=== PATIENT | female | born 1960 | race Caucasian/White ===

== ENCOUNTER 2017-11-26 09:00 | Emergency (ER) | END 2017-11-26 11:36 | disposition home or self-care (01) ==

== ENCOUNTER 2018-11-17 06:00 | Inpatient (IN) | payer OTHER ==
[~2018-11-17] VITALS: Ht 149.9 cm; Wt 81.0 kg
[~2018-11-17 06:00] MED LIST: ALBU18HF INHALATION; DOCU-144 PO; LISI-471 PO
[2018-11-17] MEDS ORDERED: ASPIRIN 81 MG TAB PO STA (06:15)
[2018-11-17] MEDS ORDERED: NITROGLYCERIN 2% 1 GM OINT PKT TD STA (06:15)
[2018-11-17] MEDS ORDERED: NITROGLYCERIN (SL) 0.4 MG TAB SL PRN (06:30)
[2018-11-17] MEDS ORDERED: IBUP-1542 PO (07:59)
--- NOTE | 2018-11-17 08:58 | ERD ---
ER Documentation Chief Complaint Chief Complaint CP since 2299 HPI Patient is a 58-year-old female with hypertension who presents with chest pain and left-sided arm pain. The symptoms started at 11 PM. Her pain has been constant. She tried ibuprofen. She feels it as a pressure-like pain. Upon review of old medical records this is the patient's third visit since 2016. She does have a primary doctor. ROS All systems reviewed and are negative except as per history of present illness. Medications Home Meds Reported Medications Ibuprofen* (Motrin*) 600 Mg Tab, 600 MG PO Q6H PRN for PAIN, TAB 11/17/18 Lisinopril* (Lisinopril*) 20 Mg Tablet, 20 MG PO DAILY, TAB 11/10/15 Discontinued Reported Medications Albuterol Sulfate* (Ventolin HFA*) 18 Gm Hfa.aer.ad, 2 PUFF INHALATION Q4H, INHALER 11/10/15 Discontinued Scripts Docusate Sodium* (Colace*) 100 Mg Capsule, 100 MG PO TID PRN for CONSTIPATION, #30 CAP Prov:KAYA DILL MD 11/26/17 Allergies Allergies: Coded Allergies: No Known Allergy (Unverified , 11/17/18) PMhx/Soc History of Surgery: Yes (hernia repair, , hysterectomy, apendectomy, gall bladder) Anesthesia Reaction: No Hx Neurological Disorder: No Hx Respiratory Disorders: Yes Hx Cardiac Disorders: Yes (HTN) Hx Psychiatric Problems: No Hx Miscellaneous Medical Probl: Yes (chronic back pain and sciatica of the left leg. Arthritis.) Hx Alcohol Use: No Hx Substance Use: No Hx Tobacco Use: No Smoking Status: Never smoker FmHx Family History: No coronary disease Physical Exam Vitals Vital Signs Date Temp Pulse Resp B/P (MAP) Pulse Ox O2 O2 Flow FiO2 Time Delivery Rate 11/17/18 68 14 167/77 99 Room Air 08:00 (107) 11/17/18 98.3 66 20 219/102 99 06:06 (141) Physical Exam Const: Mild distress Head: Atraumatic Eyes: Normal Conjunctiva ENT: Normal External Ears, Nose and Mouth. Neck: Full range of motion. No meningismus. Resp: Clear to auscultation bilaterally Cardio: Regular rate and rhythm, no murmurs Abd: Soft, non tender, non distended. Normal bowel sounds Skin: No petechiae or rashes Back: No midline or flank tenderness Ext: No cyanosis, or edema Neur: Awake and alert Psych: Normal Mood and Affect Result Diagram: 11/17/1862511/17/18625 Results 24 hrs Laboratory Tests Test 11/17/18 06:26 White Blood Count 6.3 10^3/ul Red Blood Count 5.63 10^6/ul Hemoglobin 15.2 g/dl Hematocrit 47.4 % Mean Corpuscular Volume 84.2 fl Mean Corpuscular Hemoglobin 27.0 pg Mean Corpuscular Hemoglobin Concent 32.1 g/dl Red Cell Distribution Width 13.8 % Platelet Count 269 10^3/UL Mean Platelet Volume 9.5 fl Immature Granulocytes % 0.200 % Neutrophils % 53.4 % Lymphocytes % 36.0 % Monocytes % 7.1 % Eosinophils % 2.5 % Basophils % 0.8 % Nucleated Red Blood Cells % 0.0 /100WBC Immature Granulocytes # 0.010 10^3/ul Neutrophils # 3.4 10^3/ul Lymphocytes # 2.3 10^3/ul Monocytes # 0.5 10^3/ul Eosinophils # 0.2 10^3/ul Basophils # 0.1 10^3/ul Nucleated Red Blood Cells # 0.0 10^3/ul Sodium Level 143 mmol/L Potassium Level 4.1 mmol/L Chloride Level 107 mmol/L Carbon Dioxide Level 29 mmol/L Anion Gap 7 Blood Urea Nitrogen 16 mg/dl Creatinine 0.57 mg/dl Est Glomerular Filtrat Rate mL/min > 60 mL/min Glucose Level 116 mg/dl Calcium Level 9.5 mg/dl Troponin I < 0.012 ng/ml Current Medications Medications Dose Sig/Melvin Start Time Status Last (Trade) Ordered Route PRN Stop Time Admin Dose Reason Admin Aspirin 162 mg ONCE STAT 11/17/18 DC 11/17/18 (Aspirin) PO 06:15 06:44 11/17/18 06:16 1 inch ONCE STAT 11/17/18 DC 11/17/18 Nitroglycerin TD 06:15 06:44 11/17/18 06:16 (Nitroglyceri n 2% Oint) 1 tab Q5M UP TO 3 11/17/18 Nitroglycerin DOSES PRN 06:30 SL .CHEST (Nitroglyceri PAIN n (Sl Tab) 0.4 Mg) Ondansetron 4 mg ER BRIDGE 11/17/18 HCl (Zofran PRN IV 09:00 Inj) NAUSEA/VOMITI 11/18/18 08:59 NG 650 mg ER BRIDGE 11/17/18 Acetaminophen PRN PO 09:00 (Tylenol .MILD PAIN 11/18/18 08:59 Tab) 1-3 OR TEMP Procedures/MDM EKG read by me: Rate/Rhythm: Regular rate and rhythm at a normal rate Intervals: Normal Impression: No evidence of ischemia or arrhythmia Chest x-ray read by radiology. Patient is a 58-year-old female who presents with chest pain. She has hypertension. She was given aspirin nitroglycerin for potential acute coronary syndrome. At this point I doubt pneumonia, pneumothorax, pulmonary embolism, or aortic dissection. The patient will be admitted to the care of Dr. Vega from the panel team. The patient will be admitted to a telemetry observation bed. Departure Diagnosis: Primary Impression: Chest pain Chest pain type: unspecified Qualified Codes: R07.9 - Chest pain, unspecified Condition: KAIT Medina MD Nov 17, 2018 08:58
[2018-11-17] MEDS ORDERED: ONDANSETRON 4 MG INJ IV PRN ×2 (09:00→14:30)
[2018-11-17] MEDS: ACETAMINOPHEN 325 MG TAB PO PRN ×2 (11:42→21:06)
[2018-11-17 11:59] VITALS: Ht 149.9 cm; Wt 81.0 kg
[2018-11-17 12:03] VITALS: BP 177/81; PULSE 56; RESP 17
[2018-11-17 12:05] VITALS: PULSE 57
[2018-11-17] MEDS ORDERED: LORAZEPAM 0.5 MG TAB PO PRN (14:30)
[2018-11-17] MEDS ORDERED: ACETAMINOPHEN 325 MG TAB PO PRN (14:30)
[2018-11-17] MEDS ORDERED: morphine 2 MG INJ IV PRN (14:30)
[2018-11-17] MEDS ORDERED: ZOLPIDEM 5 MG TAB PO PRN (14:30)
[2018-11-17] MEDS ORDERED: DOCUSATE SODIUM 100 MG CAP PO SCH (14:30)
[2018-11-17] MEDS: PANTOPRAZOLE (EC) 40 MG TAB PO SCH (15:09)
[2018-11-17 15:19] VITALS: BP 146/71; PULSE 52; RESP 16
[2018-11-17 16:00] VITALS: PULSE 62
--- NOTE | 2018-11-17 16:57 | CONS ---
Assessment/Plan Assessment/Plan Hospital Course (Demo Recall) 58 yo with chest and arm pain that are chronic and worsening. EKG unremarkable and troponins negative. Pain is most likely musculoskeletal, could be occupational. Impression: Chest pain, non cardiac, likely due to musculoskeletal issues Hypertension, with fair control Recommendations: No further cardiac workup needed Shoulder xrays ordered Will defer to primary/hospitalist for further workup of musculoskeletal shoulder pain Continue lisinopril Discussed importance of exercise and healthy diet for heart health Consultation Date/Type/Reason Admit Date/Time Nov 17, 2018 at 08:56 Date of Consultation: Nov 17, 2018 Type of Consult Cardiology Reason for Consultation chest pain Requesting Provider: JULY MARY Date/Time of Note DATE: 11/17/18 TIME: 16:52 Hx of Present Illness 58 yo with hypertension, 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 The pain is constant, does ease up at times, is worse with physical exertion and with lifting the left arm. She saw her pcp regarding this and she was told that she needs xrays of her shoulder. She also has low back pain. She has been taking ibuprofen to ease up the pain without much effect. No injury that she can think of that precipitated this. Constitutional: no complaints Eyes: no complaints ENT: no complaints Respiratory: no complaints Cardiovascular: chest pain Gastrointestinal: no complaints Genitourinary: no complaints Musculoskeletal: back pain Skin: no complaints Neurologic: no complaints Endocrine: no complaints Lymphatic: no complaints Psychological: no complaints Immunologic: no complaints Past Medical History Medical History: hypertension Home Meds Reported Medications Ibuprofen* (Motrin*) 600 Mg Tab, 600 MG PO Q6H PRN for PAIN, TAB 11/17/18 Lisinopril* (Lisinopril*) 20 Mg Tablet, 20 MG PO DAILY, TAB 11/10/15 Discontinued Reported Medications Albuterol Sulfate* (Ventolin HFA*) 18 Gm Hfa.aer.ad, 2 PUFF INHALATION Q4H, INHALER 11/10/15 Discontinued Scripts Docusate Sodium* (Colace*) 100 Mg Capsule, 100 MG PO TID PRN for CONSTIPATION, #30 CAP Prov:KAYA DILL MD 11/26/17 Medications Current Medications Nitroglycerin (Nitroglycerin (Sl Tab) 0.4 Mg) 1 tab Q5M UP TO 3 DOSES PRN SL .CHEST PAIN; Start 11/17/18 at 06:30 Acetaminophen (Tylenol Tab) 650 mg ER BRIDGE PRN PO .MILD PAIN 1-3 OR TEMP Last administered on 11/17/18at 11:42; Admin Dose 650 MG; Start 11/17/18 at 09:00; St op 11/18/18 at 08:59 Lorazepam (Ativan) 0.5 mg Q8H PRN PO .ANXIETY; Start 11/17/18 at 14:30 Ondansetron HCl (Zofran Inj) 4 mg Q6H PRN IV NAUSEA/VOMITING; Start 11/17/18 at 14:30 Aspirin (Aspirin) 81 mg DAILY PO ; Start 11/18/18 at 09:00 Acetaminophen (Tylenol Tab) 650 mg Q6H PRN PO .PAIN 1-3 OR TEMP; Start 11/17/18 at 14:30 Morphine Sulfate (morphine) 2 mg Q4H PRN IV .PAIN 7-10; Start 11/17/18 at 14:30 Zolpidem Tartrate (Ambien) 5 mg QHS PRN PO .INSOMNIA; Start 11/17/18 at 14:30 Docusate Sodium (Colace) 100 mg Q12H PO Last administered on 11/17/18at 15:09; Admin Dose 100 MG; Start 11/17/18 at 14:30 Pantoprazole (Protonix Tab) 40 mg DAILY@06 PO Last administered on 11/17/18at 15:09; Admin Dose 40 MG; Start 11/17/18 at 14:30 Lisinopril (Zestril) 20 mg DAILY PO ; Start 11/18/18 at 09:00 Allergies: Coded Allergies: No Known Allergy (Unverified , 11/17/18) Family History Significant Family History: no pertinent family hx (no premature cad) Social History Alcohol Use: none Smoking Status: Never smoker Drug Use: none Exam/Review of Systems Vital Signs Vitals Vital Signs Date Temp Pulse Resp B/P (MAP) Pulse Ox O2 O2 Flow FiO2 Time Delivery Rate 11/17/18 97.7 52 16 146/71 96 15:19 (96) 11/17/18 Room Air 11:38 Exam Constitutional: alert, oriented, well developed, other (obese) Psych: nl mood/affect Head: normocephalic, atraumatic Eyes: nl conjunctiva, EOMI, nl lids, nl sclera ENMT: nl external ears & nose, nl lips & teeth, nl nasal mucosa & septum Neck: supple, non-tender Respiratory: clear to auscultation, normal air movement Cardiovascular: regular rate and rhythm, nl pulses, other (chest pain reproduced by palpating the upper chest wall); No murmurs/extra sounds Gastrointestinal: soft, nl liver, spleen, non-tender, other (obese) Musculoskeletal: nl extremities to inspection Extremities: normal pulses Neurological: nl mental status, nl speech Skin: nl turgor; No rash or lesions Labs Result Diagram: 11/17/1862511/17/18625 Results 24hrs Laboratory Tests Test 11/17/18 06:26 11/17/18 13:55 White Blood Count 6.3 # Red Blood Count 5.63 H Hemoglobin 15.2 Hematocrit 47.4 H Mean Corpuscular Volume 84.2 Mean Corpuscular Hemoglobin 27.0 L Mean Corpuscular Hemoglobin Concent 32.1 Red Cell Distribution Width 13.8 Platelet Count 269 Mean Platelet Volume 9.5 Immature Granulocytes % 0.200 Neutrophils % 53.4 Lymphocytes % 36.0 Monocytes % 7.1 Eosinophils % 2.5 Basophils % 0.8 Nucleated Red Blood Cells % 0.0 Immature Granulocytes # 0.010 Neutrophils # 3.4 Lymphocytes # 2.3 Monocytes # 0.5 Eosinophils # 0.2 Basophils # 0.1 Nucleated Red Blood Cells # 0.0 Sodium Level 143 Potassium Level 4.1 Chloride Level 107 Carbon Dioxide Level 29 Anion Gap 7 Blood Urea Nitrogen 16 Creatinine 0.57 Est Glomerular Filtrat Rate mL/min > 60 Glucose Level 116 Calcium Level 9.5 Troponin I < 0.012 < 0.012 Creatine Kinase 51 Creatine Kinase Index 1.3 Creatinine Kinase MB (Mass) 0.66 Imaging Imaging EKG shows nsr at 58 bpm, and is a normal ekg Telemetry earlier in the day showed heart rates as low as the 40's. Medications Medications Current Medications Nitroglycerin (Nitroglycerin (Sl Tab) 0.4 Mg) 1 tab Q5M UP TO 3 DOSES PRN SL .CHEST PAIN; Start 11/17/18 at 06:30 Acetaminophen (Tylenol Tab) 650 mg ER BRIDGE PRN PO .MILD PAIN 1-3 OR TEMP Last administered on 11/17/18at 11:42; Admin Dose 650 MG; Start 11/17/18 at 09:00; Stop 11/18/18 at 08:59 Lorazepam (Ativan) 0.5 mg Q8H PRN PO .ANXIETY; Start 11/17/18 at 14:30 Ondansetron HCl (Zofran Inj) 4 mg Q6H PRN IV NAUSEA/VOMITING; Start 11/17/18 at 14:30 Aspirin (Aspirin) 81 mg DAILY PO ; Start 11/18/18 at 09:00 Acetaminophen (Tylenol Tab) 650 mg Q6H PRN PO .PAIN 1-3 OR TEMP; Start 11/17/18 at 14:30 Morphine Sulfate (morphine) 2 mg Q4H PRN IV .PAIN 7-10; Start 11/17/18 at 14:30 Zolpidem Tartrate (Ambien) 5 mg QHS PRN PO .INSOMNIA; Start 11/17/18 at 14:30 Docusate Sodium (Colace) 100 mg Q12H PO Last administered on 11/17/18at 15:09; Admin Dose 100 MG; Start 11/17/18 at 14:30 Pantoprazole (Protonix Tab) 40 mg DAILY@06 PO Last administered on 11/17/18at 15:09; Admin Dose 40 MG; Start 11/17/18 at 14:30 Lisinopril (Zestril) 20 mg DAILY PO ; Start 11/18/18 at 09:00 FIGUEROA MESSER Nov 17, 2018 16:57
--- NOTE | 2018-11-17 17:41 | HP ---
DATE OF ADMISSION: 11/17/2018 PRESENTING COMPLAINT: Left-sided chest pain. HISTORY OF PRESENTING COMPLAINT: A 58-year-old female with past medical history only of high blood p ressure, who presented to the emergency room with intermittent chest pain since yesterday. Patient s tates for about a year she has had on and off chest pain, but in the last day it has been worsened an d it has affected her left shoulder. It radiates down her left arm, and also has some discomfort in her jaw area. Of note is that these areas are sore as well, but she has not sustained any trauma, sh e has not been doing any heavy lifting and pain kind of just comes on and subsides on its own. The p ain is also associated with some activity. There is no shortness of breath. There is no diaphoresis . No cough, no fever, no abdominal pain, dysuria or hematuria. She has pain on and off for about a year, but prior to that she has not had similar pain before. She had no family history of dementia, coronary artery disease or early stroke. PAST MEDICAL HISTORY: Hypertension, intermittent asthma. PAST SURGICAL HISTORY: section, urinary repair, tonsillectomy, appendectomy and gallbladder surgery. ALLERGIES: No known drug allergies. SOCIAL HISTORY: Denies tobacco, alcohol or illicit drug use. FAMILY HISTORY: Positive for diabetes only. REVIEW OF SYSTEMS: A 12-point review of system with no pertinent findings other than HPI. HOME MEDICATIONS: Reviewed and reconciled. PHYSICAL EXAMINATION VITAL SIGNS: Temperature 97.7. Patient has been bradycardic to the 50s, actually had episodes of go ing all the way to the 40s, respiratory rate 16, blood pressure 146/71, saturation 96% on room air. GENERAL: The patient is mildly anxious, but alert, oriented, currently in no distress. HEENT: Head is normocephalic with evidence of trauma. Pupils are equal, round, and reactive. Mucou s membranes are moist. Posterior pharynx without erythema and exudate. NECK: Supple without adenopathy or JVD. CHEST: Clear to auscultation. CARDIOVASCULAR: Heart sounds S1 and S2, without added sounds or murmurs. ABDOMEN: Soft, nontender, nondistended with normoactive bowel sounds. On chest exam, she does seem sore to palpation left anterior chest wall extending to the left shoulde r, but also arm has been sore, says it is more soreness rather than tenderness to palpation. SKIN: Otherwise is devoid of rash or jaundice. PSYCHIATRIC: She was anxious. LABORATORY VALUES: I reviewed her CBC, a basic metabolic profile and they are essentially so far are negative. We have 2 negative sets of troponin. EKG shows sinus bradycardia at 50. Chest x-ray heavenly wed no active cardiopulmonary abnormalities. ASSESSMENT: Details reveal past medical history of high blood pressure who presents with intermitten t chest pain for about a year, has worsened in the last day, warranting emergency room visit, admitte d and managed as follows: 1. Atypical chest pain radiating to left shoulder and jaw. The patient is admitted for ACS rule out . 2. Hypertension: Currently showing good control on lisinopril alone at home. 3. Mild anxiety. PLAN: Admit her to tele floor, complete ACS rule out, get a 2D echo, provide symptomatic treatment w ith pain control, I will also have antiemetics and PPI in case this is gastric in origin. Will get c ardiology consultation to see if patient would benefit from a stress test and provide further interve ntions as her clinical course progresses. The plan of care has been discussed with her in detail, qu estions have been answered. Dictated By: JULY MARY MD, BA/NARCISA Conf#: [id number] DID#: [id number]
[2018-11-17 20:00] VITALS: BP 150/73; PULSE 55; RESP 16
[2018-11-17 20:16] VITALS: PULSE 70
[2018-11-18] VITALS (13 sets, daily range): BP systolic 114–181; BP diastolic 53–87; PULSE 53–71; RESP 18–22
[2018-11-18] MEDS: PANTOPRAZOLE (EC) 40 MG TAB PO SCH (05:53)
[2018-11-18] MEDS: ACETAMINOPHEN 325 MG TAB PO PRN (07:29)
[2018-11-18] MEDS: LISINOPRIL 20 MG TAB PO SCH (08:28)
[2018-11-18] MEDS: DOCUSATE SODIUM 100 MG CAP PO SCH ×2 (08:28→20:25)
[2018-11-18] MEDS: ASPIRIN 81 MG TAB PO SCH (08:28)
[2018-11-18] MEDS: DICLOFENAC SODIUM 1% GEL 100 GM TUBE TP SCH ×3 (15:12→20:25)
--- NOTE | 2018-11-18 15:50 | RADRPT ---
Echocardiogram Report Patient Name: Elver LOPEZ ID: [id number] : 1960 (58y 10m)Study Date: 11/18/2018 7:06:40 AM Gender: FAccession #: [id number] Tech: Neto Perez [facility] Location: 6 Ref.Physician: JULY MARY Height(Cm): BSA: Weight(Kg): Quality: AdequateAccount #: Procedures: Echocardiographic Report: Transthoracic echocardiogram with complete 2D, M-Mode, and doppler examination. Indications: Chest Pain. Measurements: 2D/M Mode Doppler Measurement Value Normal Range Measurement Value Normal Range LVIDd 2D 4.3 [ 3.8 - 5.2 ] cm AV Peak Darion 1.3 [ 100.0 - 170.0 ] cm/sec LVIDs 2D 2.9 [ 2.2 - 3.5 ] cm AV Peak PG 7.0 [ 2.0 - 9.0 ] mmHg LVPWd 2D 1.0 [ 0.6 - 0.9 ] cm LVOT Peak Darion 0.8 [ 70.0 - 110.0 ] cm/sec IVSd 2D 1.1 [ 0.6 - 0.9 ] cm LVOT Peak PG 3.0 [ 2.0 - 6.0 ] mmHg AoR Diam 2D 2.5 [ 2.3 - 3.1 ] cm MV E Peak Darion 0.7 [ 60.0 - 130.0 ] cm/sec EDV 2D 80.8 [ 46.0 - 106.0 ] ml MV A Peak Darion 0.6 [ 100.0 - 120.0 ] cm/sec ESV 2D 31.9 [ 14.0 - 42.0 ] ml MV E/A 1.0 [ 0.8 - 1.5 ] ratio EF 2D 60.5 [ 54.0 - 74.0 ] percent MV Decel Time 208 [ 104 - 258 ] msec LA Dimen 2D 3.2 [ 2.7 - 3.8 ] cm Lat E` Darion 0.1 [ 10.0 - 15.0 ] cm/sec Lateral E/E` 5.2 [ 1.0 - 2.0 ] ratio MV E/A 1.0 [ 0.8 - 1.5 ] ratio Findings: Left Ventricle: Normal left ventricular systolic function. Normal left ventricular cavity size. Normal left ventricular wall thickness. Ejection fraction is visually estimated at 65 %. Tissue Doppler/Mitral Doppler indices are within normal limits. Right Ventricle: Normal right ventricular size. Normal right ventricular systolic function. Left Atrium: The left atrium is normal in size. Right Atrium: The right atrium is normal in size. Mitral Valve: Normal appearance of the mitral valve. No mitral valve regurgitation is seen. Aortic Valve: Normal appearance of the aortic valve. No significant aortic stenosis or insufficiency. Tricuspid Valve: Normal appearance and function of the tricuspid valve with trace physiologic regurgitation. Normal right ventricular systolic pressure. Pulmonic Valve: Normal pulmonic valve appearance. Pericardium: Normal pericardium with no significant pericardial effusion. Aorta: Normal aortic root. IVC: Normal size and normal respiratory collapse consistent with normal right atrial pressure. Conclusions: Normal echocardiogram. Electronically Signed By: Kierra Marroquin 2018-11-18 15:49:39 PDT
--- NOTE | 2018-11-18 17:26 | PN ---
Date/Time of Note Date/Time of Note DATE: 11/18/18 TIME: 17:23 Assessment/Plan VTE Prophylaxis Risk score (from Ns)>0 risk: 2 SCD applied (from Ns): Yes SCD contraindicated: low risk/ambulating Pharmacological prophylaxis: NA/contraindicated Pharm contraindication: low risk/ambulating Lines/Catheters IV Catheter Type (from [facility]): Saline Lock Assessment/Plan Assessment/Plan 1. Atypical left-sided chest pain radiating to left shoulder:, cardiology has deemed noncardiac in origin, recommended musculoskeletal workup. Will get MRI of the shoulder to rule out rotator cuff pathology as shoulder x-rays negative at this time. 2. Hypertension: With well controlled 3. Headaches and dizziness: Patient requesting imaging as this has been concerning for her. Will also order meclizine as needed and get neurology consult 4. Anxiety: Treat as needed Disposition: patient was to be discharged today after a cardiac clearance, but will order imaging as above, and if negative will discharge patient for continued management as outpatient with PCP. We will also downgraded to Weight Wins Result Diagram: 11/18/18 0457 11/18/18 0457 Results 24hrs Laboratory Tests Test 11/17/18 17:36 11/18/18 04:57 Creatine Kinase 46 Creatine Kinase Index 1.2 Creatinine Kinase MB (Mass) 0.56 Troponin I < 0.012 White Blood Count 5.6 Red Blood Count 5.46 H Hemoglobin 14.7 Hematocrit 45.7 Mean Corpuscular Volume 83.7 Mean Corpuscular Hemoglobin 26.9 L Mean Corpuscular Hemoglobin Concent 32.2 Red Cell Distribution Width 14.2 Platelet Count 274 Mean Platelet Volume 9.7 Immature Granulocytes % 0.200 Neutrophils % 51.0 Lymphocytes % 39.1 Monocytes % 7.1 Eosinophils % 2.1 Basophils % 0.5 Nucleated Red Blood Cells % 0.0 Immature Granulocytes # 0.010 Neutrophils # 2.9 Lymphocytes # 2.2 Monocytes # 0.4 Eosinophils # 0.1 Basophils # 0.0 Nucleated Red Blood Cells # 0.0 Sodium Level 140 Potassium Level 4.5 Chloride Level 104 Carbon Dioxide Level 28 Anion Gap 8 Blood Urea Nitrogen 13 Creatinine 0.50 Est Glomerular Filtrat Rate mL/min > 60 Glucose Level 109 Calcium Level 9.2 Magnesium Level 2.1 Total Bilirubin 0.4 Direct Bilirubin 0.00 Indirect Bilirubin 0.4 Aspartate Amino Transf (AST/SGOT) 22 Alanine Aminotransferase (ALT/SGPT) 13 Alkaline Phosphatase 89 Total Protein 6.9 Albumin 3.9 Globulin 3.00 Albumin/Globulin Ratio 1.30 Triglycerides Level 139 Cholesterol Level 184 LDL Cholesterol, Calculated 94 HDL Cholesterol 62 Cholesterol/HDL Ratio 2.9 Thyroid Stimulating Hormone (TSH) 1.790 Subjective 24 Hr Interval Summary Free Text/Dictation Patient still having persistent left-sided chest pain radiating to left shoulder, now also noting that she has been having headaches and dizziness for a while. States that headaches Exam/Review of Systems Exam Vitals Vital Signs Date Temp Pulse Resp B/P (MAP) Pulse Ox O2 O2 Flow FiO2 Time Delivery Rate 11/18/18 54 16:00 11/18/18 98.0 22 157/73 96 Room Air 15:54 (101) Intake and Output 11/17/18 11/17/18 11/18/18 1515:00 23:00 07:00 IntakeIntake Total 780 ml 120 ml BalanceBalance 780 ml 120 ml Exam Constitutional: alert, oriented Head: atraumatic, normocephalic Neck: non-tender, supple Respiratory: clear to auscultation Cardiovascular: regular rate and rhythm Gastrointestinal: S/ NT / ND / +BS Extremities: no edema, good radial pulses, patient remains with soreness and tenderness left shoulder and forearm. Results Results 24hrs Laboratory Tests Test 11/17/18 17:36 11/18/18 04:57 Creatine Kinase 46 Creatine Kinase Index 1.2 Creatinine Kinase MB (Mass) 0.56 Troponin I < 0.012 White Blood Count 5.6 Red Blood Count 5.46 H Hemoglobin 14.7 Hematocrit 45.7 Mean Corpuscular Volume 83.7 Mean Corpuscular Hemoglobin 26.9 L Mean Corpuscular Hemoglobin Concent 32.2 Red Cell Distribution Width 14.2 Platelet Count 274 Mean Platelet Volume 9.7 Immature Granulocytes % 0.200 Neutrophils % 51.0 Lymphocytes % 39.1 Monocytes % 7.1 Eosinophils % 2.1 Basophils % 0.5 Nucleated Red Blood Cells % 0.0 Immature Granulocytes # 0.010 Neutrophils # 2.9 Lymphocytes # 2.2 Monocytes # 0.4 Eosinophils # 0.1 Basophils # 0.0 Nucleated Red Blood Cells # 0.0 Sodium Level 140 Potassium Level 4.5 Chloride Level 104 Carbon Dioxide Level 28 Anion Gap 8 Blood Urea Nitrogen 13 Creatinine 0.50 Est Glomerular Filtrat Rate mL/min > 60 Glucose Level 109 Calcium Level 9.2 Magnesium Level 2.1 Total Bilirubin 0.4 Direct Bilirubin 0.00 Indirect Bilirubin 0.4 Aspartate Amino Transf (AST/SGOT) 22 Alanine Aminotransferase (ALT/SGPT) 13 Alkaline Phosphatase 89 Total Protein 6.9 Albumin 3.9 Globulin 3.00 Albumin/Globulin Ratio 1.30 Triglycerides Level 139 Cholesterol Level 184 LDL Cholesterol, Calculated 94 HDL Cholesterol 62 Cholesterol/HDL Ratio 2.9 Thyroid Stimulating Hormone (TSH) 1.790 Medications Medication Current Medications Nitroglycerin (Nitroglycerin (Sl Tab) 0.4 Mg) 1 tab Q5M UP TO 3 DOSES PRN SL .CHEST PAIN; Start 11/17/18 at 06:30 Lorazepam (Ativan) 0.5 mg Q8H PRN PO .ANXIETY; Start 11/17/18 at 14:30 Ondansetron HCl (Zofran Inj) 4 mg Q6H PRN IV NAUSEA/VOMITING; Start 11/17/18 at 14:30 Aspirin (Aspirin) 81 mg DAILY PO Last administered on 11/18/18at 08:28; Admin Dose 81 MG; Start 11/18/18 at 09:00 Acetaminophen (Tylenol Tab) 650 mg Q6H PRN PO .PAIN 1-3 OR TEMP; Start 11/17/18 at 14:30 Morphine Sulfate (morphine) 2 mg Q4H PRN IV .PAIN 7-10; Start 11/17/18 at 14:30 Zolpidem Tartrate (Ambien) 5 mg QHS PRN PO .INSOMNIA; Start 11/17/18 at 14:30 Pantoprazole (Protonix Tab) 40 mg DAILY@06 PO Last administered on 11/17/18at 15:09; Admin Dose 40 MG; Start 11/17/18 at 14:30 Lisinopril (Zestril) 20 mg DAILY PO Last administered on 11/18/18at 08:28; Admin Dose 20 MG; Start 11/18/18 at 09:00 Docusate Sodium (Colace) 100 mg Q12H PO Last administered on 11/18/18at 08:28; Admin Dose 100 MG; Start 11/18/18 at 09:00 Diclofenac Sodium (Voltaren 1% Gel) 4 gm QID TP Last administered on 11/18/18at 15:12; Admin Dose 4 GM; Start 11/18/18 at 14:30 JULY MARY Nov 18, 2018 17:26
--- NOTE | 2018-11-18 17:28 | CONS ---
Assessment/Plan Assessment/Plan Hospital Course 58 yo F with hx of HTN and other comorbidities who presents for evaluation of chest pain. She was noted to have headaches... for which neurology is consulted. The clinical picture is consistent with migraines. 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 P: Await Head CT for further characterization Add Naproxen 500mg q8h prn for abortive management for now, w/ Topamax 25mg BID for ppx..to be titrated to goal as an outpatient.. Other medical management and supportive care per primary Will follow clinically Consultation Date/Type/Reason Admit Date/Time Nov 17, 2018 at 08:56 Type of Consult Neurology Reason for Consultation headache Requesting Provider: JULY MARY Date/Time of Note DATE: 11/18/18 TIME: 16:58 Hx of Present Illness 58 yo F with hx of HTN and other comorbidities who presented to the ED with complaints of chest pain She additionally endorses headaches today. She states that she has had them consistently for ~30 years. She states that when they start, they start frontally before radiating to the back of her head and down her neck. She endorses a severe, throbbing pain, that is usually associated with nausea, dizziness, and sensitivity to light. Alleviating factors include rest. It is additionally elsewhere noted: HISTORY OF PRESENTING COMPLAINT: A 58-year-old female with past medical history only of high blood pressure, who presented to the emergency room with intermittent chest pain since yesterday. Patient states for about a year she has had on and off chest pain, but in the last day it has been worsened and it has affected her left shoulder. It radiates down her left arm, and also has some discomfort in her jaw area. Of note is that these areas are sore as well, but she has not sustained any trauma, she has not been doing any heavy lifting and pain kind of just comes on and subsides on its own. The pain is also associated with some activity. There is no shortness of breath. There is no diaphoresis. No cough, no fever, no abdominal pain, dysuria or hematuria. She has pain on and off for about a year, but prior to that she has not had similar pain before. She had no family history of dementia, coronary artery disease or early stroke. negative unless noted otherwise in HPI Exam/Review of Systems Exam Vitals Vital Signs Date Temp Pulse Resp B/P (MAP) Pulse Ox O2 O2 Flow FiO2 Time Delivery Rate 11/18/18 98.0 53 22 157/73 96 Room Air 15:54 (101) Intake and Output 11/17/18 11/17/18 11/18/18 1515:00 23:00 07:00 IntakeIntake Total 780 ml 120 ml BalanceBalance 780 ml 120 ml Exam PE: Gen Appearance: No Apparent Distress HEENT: Normocephalic Cardiovascular: Regular rate Lungs: Clear bilaterally Abdomen: Soft Extremities: Dry NE: The patient was alert and oriented. Language was normal. Fund of knowledge was normal. Pupils were equal and reactive to light. There was no afferent pupillary defect. Visual munguia were normal. Funduscopic examination was limited. Extra-ocular movements were full. Ptosis was absent. There was no nystagmus. Facial sensation was normal. Face was symmetric with normal strength. Hearing was intact. Palate movements were normal. Neck strength was normal. There was normal tongue bulk and speed of movement. Tone was normal. Muscle bulk was normal. I did not see fasciculations. Arms and legs were strong. Vibration sensation was normal. Temperature and pinprick sensation was normal. Rapid alternating movements were normal. There was no dysmetria. There was no intention tremor. Gait was deferred due to bedrest. Arm and leg reflexes were 2+ and symmetric. Benítez's sign was absent. Plantar responses were flexor. Results Result Diagram: 11/18/18 0457 11/18/18 0457 Results 24hrs Laboratory Tests Test 11/17/18 17:36 11/18/18 04:57 Creatine Kinase 46 Creatine Kinase Index 1.2 Creatinine Kinase MB (Mass) 0.56 Troponin I < 0.012 White Blood Count 5.6 Red Blood Count 5.46 H Hemoglobin 14.7 Hematocrit 45.7 Mean Corpuscular Volume 83.7 Mean Corpuscular Hemoglobin 26.9 L Mean Corpuscular Hemoglobin Concent 32.2 Red Cell Distribution Width 14.2 Platelet Count 274 Mean Platelet Volume 9.7 Immature Granulocytes % 0.200 Neutrophils % 51.0 Lymphocytes % 39.1 Monocytes % 7.1 Eosinophils % 2.1 Basophils % 0.5 Nucleated Red Blood Cells % 0.0 Immature Granulocytes # 0.010 Neutrophils # 2.9 Lymphocytes # 2.2 Monocytes # 0.4 Eosinophils # 0.1 Basophils # 0.0 Nucleated Red Blood Cells # 0.0 Sodium Level 140 Potassium Level 4.5 Chloride Level 104 Carbon Dioxide Level 28 Anion Gap 8 Blood Urea Nitrogen 13 Creatinine 0.50 Est Glomerular Filtrat Rate mL/min > 60 Glucose Level 109 Calcium Level 9.2 Magnesium Level 2.1 Total Bilirubin 0.4 Direct Bilirubin 0.00 Indirect Bilirubin 0.4 Aspartate Amino Transf (AST/SGOT) 22 Alanine Aminotransferase (ALT/SGPT) 13 Alkaline Phosphatase 89 Total Protein 6.9 Albumin 3.9 Globulin 3.00 Albumin/Globulin Ratio 1.30 Triglycerides Level 139 Cholesterol Level 184 LDL Cholesterol, Calculated 94 HDL Cholesterol 62 Cholesterol/HDL Ratio 2.9 Thyroid Stimulating Hormone (TSH) 1.790 Medications Medication Current Medications Nitroglycerin (Nitroglycerin (Sl Tab) 0.4 Mg) 1 tab Q5M UP TO 3 DOSES PRN SL .CHEST PAIN; Start 11/17/18 at 06:30 Lorazepam (Ativan) 0.5 mg Q8H PRN PO .ANXIETY; Start 11/17/18 at 14:30 Ondansetron HCl (Zofran Inj) 4 mg Q6H PRN IV NAUSEA/VOMITING; Start 11/17/18 at 14:30 Aspirin (Aspirin) 81 mg DAILY PO Last administered on 11/18/18at 08:28; Admin Dose 81 MG; Start 11/18/18 at 09:00 Acetaminophen (Tylenol Tab) 650 mg Q6H PRN PO .PAIN 1-3 OR TEMP; Start 11/17/18 at 14:30 Morphine Sulfate (morphine) 2 mg Q4H PRN IV .PAIN 7-10; Start 11/17/18 at 14:30 Zolpidem Tartrate (Ambien) 5 mg QHS PRN PO .INSOMNIA; Start 11/17/18 at 14:30 Pantoprazole (Protonix Tab) 40 mg DAILY@06 PO Last administered on 11/17/18at 15:09; Admin Dose 40 MG; Start 11/17/18 at 14:30 Lisinopril (Zestril) 20 mg DAILY PO Last administered on 11/18/18at 08:28; Admin Dose 20 MG; Start 11/18/18 at 09:00 Docusate Sodium (Colace) 100 mg Q12H PO Last administered on 11/18/18at 08:28; Admin Dose 100 MG; Start 11/18/18 at 09:00 Diclofenac Sodium (Voltaren 1% Gel) 4 gm QID TP Last administered on 11/18/18at 15:12; Admin Dose 4 GM; Start 11/18/18 at 14:30 Past Medical History reviewed Home Meds Reported Medications Ibuprofen* (Motrin*) 600 Mg Tab, 600 MG PO Q6H PRN for PAIN, TAB 11/17/18 Lisinopril* (Lisinopril*) 20 Mg Tablet, 20 MG PO DAILY, TAB 11/10/15 Discontinued Reported Medications Albuterol Sulfate* (Ventolin HFA*) 18 Gm Hfa.aer.ad, 2 PUFF INHALATION Q4H, INHALER 11/10/15 Discontinued Scripts Docusate Sodium* (Colace*) 100 Mg Capsule, 100 MG PO TID PRN for CONSTIPATION, #30 CAP Prov:KAYA DILL MD 11/26/17 Medications Current Medications Nitroglycerin (Nitroglycerin (Sl Tab) 0.4 Mg) 1 tab Q5M UP TO 3 DOSES PRN SL .CHEST PAIN; Start 11/17/18 at 06:30 Lorazepam (Ativan) 0.5 mg Q8H PRN PO .ANXIETY; Start 11/17/18 at 14:30 Ondansetron HCl (Zofran Inj) 4 mg Q6H PRN IV NAUSEA/VOMITING; Start 11/17/18 at 14:30 Aspirin (Aspirin) 81 mg DAILY PO Last administered on 11/18/18at 08:28; Admin Dose 81 MG; Start 11/18/18 at 09:00 Acetaminophen (Tylenol Tab) 650 mg Q6H PRN PO .PAIN 1-3 OR TEMP; Start 11/17/18 at 14:30 Morphine Sulfate (morphine) 2 mg Q4H PRN IV .PAIN 7-10; Start 11/17/18 at 14:30 Zolpidem Tartrate (Ambien) 5 mg QHS PRN PO .INSOMNIA; Start 11/17/18 at 14:30 Pantoprazole (Protonix Tab) 40 mg DAILY@06 PO Last administered on 11/17/18at 15:09; Admin Dose 40 MG; Start 11/17/18 at 14:30 Lisinopril (Zestril) 20 mg DAILY PO Last administered on 11/18/18at 08:28; Admin Dose 20 MG; Start 11/18/18 at 09:00 Docusate Sodium (Colace) 100 mg Q12H PO Last administered on 11/18/18at 08:28; Admin Dose 100 MG; Start 11/18/18 at 09:00 Diclofenac Sodium (Voltaren 1% Gel) 4 gm QID TP Last administered on 11/18/18at 15:12; Admin Dose 4 GM; Start 11/18/18 at 14:30 Allergies: Coded Allergies: No Known Allergy (Unverified , 11/17/18) Past Surgical History reviewed Social History reviewed Alcohol Use: none Smoking Status: Never smoker Drug Use: none WILLIAM BRONSON NP Nov 18, 2018 17:23 DAWN MATA Nov 18, 2018 21:22
[2018-11-18] MEDS ORDERED: METOCLOPRAMIDE 10 MG INJ IV PRN (17:30)
[2018-11-18] MEDS ORDERED: MECLIZINE 25 MG TAB PO PRN (17:30)
[2018-11-18] MEDS: TOPIRAMATE 25 MG TAB PO SCH (20:25)
[2018-11-18] MEDS ORDERED: NAPROXEN 500 MG TAB PO PRN (21:30)
[2018-11-19 02:13] VITALS: BP 122/72; PULSE 60; RESP 18
[2018-11-19] MEDS: PANTOPRAZOLE (EC) 40 MG TAB PO SCH (05:50)
[2018-11-19 07:33] VITALS: BP 104/59; PULSE 54; RESP 18
[2018-11-19] MEDS: DICLOFENAC SODIUM 1% GEL 100 GM TUBE TP SCH ×4 (09:03→20:21)
[2018-11-19] MEDS: DOCUSATE SODIUM 100 MG CAP PO SCH ×2 (09:03→20:25)
[2018-11-19] MEDS: TOPIRAMATE 25 MG TAB PO SCH ×2 (09:03→20:25)
[2018-11-19] MEDS: ASPIRIN 81 MG TAB PO SCH (09:03)
[2018-11-19] MEDS: LISINOPRIL 20 MG TAB PO SCH (09:04)
--- NOTE | 2018-11-19 11:19 | CONS ---
Assessment/Plan Assessment/Plan Hospital Course 58 yo F with hx of HTN and other comorbidities who presents for evaluation of chest pain. She was noted to have headaches... for which neurology is consulted. The clinical picture is consistent with migraines. 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 CTH is unrevealing. P: Cont Naproxen 500mg q8h prn for abortive management for now, w/ Topamax 25mg BID for ppx..to be titrated to goal as an outpatient.. Other medical management and supportive care per primary Will follow clinically Consultation Date/Type/Reason Admit Date/Time Nov 17, 2018 at 08:56 Type of Consult Neurology Reason for Consultation headache Requesting Provider: JULY MARY Date/Time of Note DATE: 11/19/18 TIME: 11:18 24 HR Interval Summary Free Text/Dictation Continues acute care. Pt denies migraines today. States that the topamax is helping. Exam Vital Signs Vitals Vital Signs Date Temp Pulse Resp B/P (MAP) Pulse Ox O2 O2 Flow FiO2 Time Delivery Rate 11/19/18 98.4 54 18 104/59 96 07:33 (74) 11/18/18 Room Air 15:54 Intake and Output 11/18/18 11/18/18 11/19/18 1515:00 23:00 07:00 IntakeIntake Total 1000 ml BalanceBalance 1000 ml Exam PE: Gen Appearance: No Apparent Distress HEENT: Normocephalic Cardiovascular: Regular rate Lungs: Clear bilaterally Abdomen: Soft Extremities: Dry NE: The patient was alert and oriented. Language was normal. Fund of knowledge was normal. Pupils were equal and reactive to light. There was no afferent pupillary defect. Visual munguia were normal. Funduscopic examination was limited. Extra-ocular movements were full. Ptosis was absent. There was no nystagmus. Facial sensation was normal. Face was symmetric with normal strength. Hearing was intact. Palate movements were normal. Neck strength was normal. There was normal tongue bulk and speed of movement. Tone was normal. Muscle bulk was normal. I did not see fasciculations. Arms and legs were strong. Vibration sensation was normal. Temperature and pinprick sensation was normal. Rapid alternating movements were normal. There was no dysmetria. There was no intention tremor. Gait was deferred due to bedrest. Arm and leg reflexes were 2+ and symmetric. Benítez's sign was absent. Plantar responses were flexor. WILLIAM BRONSON NP Nov 19, 2018 11:19
--- NOTE | 2018-11-19 11:37 | PN ---
Date/Time of Note Date/Time of Note DATE: 11/19/18 TIME: 11:37 Assessment/Plan VTE Prophylaxis Risk score (from Ns)>0 risk: 2 SCD applied (from Ns): No SCD contraindicated: other Pharmacological prophylaxis: NA/contraindicated Pharm contraindication: low risk/ambulating Lines/Catheters [facility] Saline Lock Assessment/Plan Hospital Course SUBJECTIVE: Lying in bed comfortably. No further chest pain. Having left shoulder pain which is improved from before. OBJECTIVE: Vital signs-see below PHYSICAL EXAM: Constitutional: Well-developed, well-nourished not in acute distress. HEENT: Head atraumatic and normocephalic. Eyes: Extraocular muscles intact. Anicteric sclerae. Pupils equal bilaterally, reactive to light. NECK: Supple without lymph node. CHEST: Clear and good breath sounds equally. No wheezing. No rhonchi. HEART: S1, S2. Regular rate and rhythm. ABDOMEN: Soft with no rebound tenderness. Bowel sounds were present. EXTREMITIES: Full range of motion in all the extremities. No cyanosis, clubbing or edema. NEUROLOGIC: Alert and oriented x3. No focal deficit. No sensory deficit. PSYCHOSOCIAL: In a good mood. No signs of depression. INTEGUMENTARY: Moist mucous membranes. Good skin turgor, intact. 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 1. Chest pain, likely costochondritis. -ACS ruled out. No further cardiac workup needed. 2. Left shoulder high-grade full width tear of supraspinatus tendon with perforations. -Orthopedic consultation with Dr. Luna has been requested. -Continue pain control. 3. Hypertension. -Stable on lisinopril. 4. Obesity with BMI 36.1 -Stable lipid panel. Will add A1c. 5. Migraine headaches. -She is stable now. -Appreciate neurology recommendations. On Topamax and NSAIDs. DVT prophylaxis: SCDs . Not indicated Disposition: Continue current management. Await for orthopedic recommendations. Patient was seen in collaboration with Dr. Vega. Result Diagram: 11/18/18 0457 11/18/18 0457 Exam/Review of Systems Exam Vitals Vital Signs Date Temp Pulse Resp B/P (MAP) Pulse Ox O2 O2 Flow FiO2 Time Delivery Rate 11/19/18 98.4 54 18 104/59 96 07:33 (74) 11/18/18 Room Air 15:54 Intake and Output 11/18/18 11/18/18 11/19/18 1515:00 23:00 07:00 IntakeIntake Total 1000 ml BalanceBalance 1000 ml Medications Medication Current Medications Nitroglycerin (Nitroglycerin (Sl Tab) 0.4 Mg) 1 tab Q5M UP TO 3 DOSES PRN SL .CHEST PAIN; Start 11/17/18 at 06:30 Lorazepam (Ativan) 0.5 mg Q8H PRN PO .ANXIETY; Start 11/17/18 at 14:30 Ondansetron HCl (Zofran Inj) 4 mg Q6H PRN IV NAUSEA/VOMITING; Start 11/17/18 at 14:30 Aspirin (Aspirin) 81 mg DAILY PO Last administered on 11/19/18at 09:03; Admin Dose 81 MG; Start 11/18/18 at 09:00 Acetaminophen (Tylenol Tab) 650 mg Q6H PRN PO .PAIN 1-3 OR TEMP; Start 11/17/18 at 14:30 Morphine Sulfate (morphine) 2 mg Q4H PRN IV .PAIN 7-10; Start 11/17/18 at 14:30 Zolpidem Tartrate (Ambien) 5 mg QHS PRN PO .INSOMNIA; Start 11/17/18 at 14:30 Pantoprazole (Protonix Tab) 40 mg DAILY@06 PO Last administered on 11/19/18at 05:50; Admin Dose 40 MG; Start 11/17/18 at 14:30 Lisinopril (Zestril) 20 mg DAILY PO Last administered on 11/19/18at 09:04; Admin Dose 20 MG; Start 11/18/18 at 09:00 Docusate Sodium (Colace) 100 mg Q12H PO Last administered on 11/19/18at 09:03; Admin Dose 100 MG; Start 11/18/18 at 09:00 Diclofenac Sodium (Voltaren 1% Gel) 4 gm QID TP Last administered on 11/19/18at 09:03; Admin Dose 4 GM; Start 11/18/18 at 14:30 Topiramate (Topamax) 25 mg BID PO Last administered on 11/19/18at 09:03; Admin Dose 25 MG; Start 11/18/18 at 21:00 Metoclopramide HCl (Reglan) 10 mg ONCE PRN IV headache; Start 11/18/18 at 17:30; Stop 11/19/18 at 17:29 Meclizine HCl (Antivert) 25 mg TID PRN PO dizziness; Start 11/18/18 at 17:30 Naproxen (Naprosyn) 500 mg Q8H PRN PO MILD PAIN LEVEL 1-3; Start 11/18/18 at 21:30 SHANIKA CONKLIN NP Nov 19, 2018 11:37
[2018-11-19 12:58] VITALS: BP 104/77; PULSE 80; RESP 18
[2018-11-19 20:00] VITALS: BP 133/64; PULSE 63; RESP 19
[2018-11-20 02:00] VITALS: BP 129/66; PULSE 58; RESP 18
[2018-11-20] MEDS: PANTOPRAZOLE (EC) 40 MG TAB PO SCH (06:00)
[2018-11-20 07:35] VITALS: BP 126/60; PULSE 56; RESP 18
[2018-11-20] MEDS: DOCUSATE SODIUM 100 MG CAP PO SCH (09:28)
[2018-11-20] MEDS: ASPIRIN 81 MG TAB PO SCH (09:28)
[2018-11-20] MEDS: LISINOPRIL 20 MG TAB PO SCH (09:28)
[2018-11-20] MEDS: TOPIRAMATE 25 MG TAB PO SCH (09:29)
[2018-11-20] MEDS: DICLOFENAC SODIUM 1% GEL 100 GM TUBE TP SCH ×2 (09:30→13:04)
--- NOTE | 2018-11-20 09:44 | PN ---
Date/Time of Note Date/Time of Note DATE: 11/20/18 TIME: 09:43 Assessment/Plan VTE Prophylaxis Risk score (from Ns)>0 risk: 1 SCD applied (from [facility] [place] No SCD contraindicated: other Pharmacological prophylaxis: NA/contraindicated Pharm contraindication: low risk/ambulating Lines/Catheters IV Catheter Type (from [facility]): Saline Lock Urinary Cath still in place: No Assessment/Plan Hospital Course SUBJECTIVE: no overnight episodes. OBJECTIVE: Vital signs-see below PHYSICAL EXAM: Constitutional: Well-developed, well-nourished not in acute distress. HEENT: Head atraumatic and normocephalic. Eyes: Extraocular muscles intact. Anicteric sclerae. Pupils equal bilaterally, reactive to light. NECK: Supple without lymph node. CHEST: Clear and good breath sounds equally. No wheezing. No rhonchi. HEART: S1, S2. Regular rate and rhythm. ABDOMEN: Soft with no rebound tenderness. Bowel sounds were present. EXTREMITIES: Full range of motion in all the extremities. No cyanosis, clubbing or edema. NEUROLOGIC: Alert and oriented x3. No focal deficit. No sensory deficit. PSYCHOSOCIAL: In a good mood. No signs of depression. INTEGUMENTARY: Moist mucous membranes. Good skin turgor, intact. 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 1. Chest pain, likely costochondritis. -ACS ruled out. No further cardiac workup needed. 2. Left shoulder high-grade full width tear of supraspinatus tendon with perforations. -Orthopedic consultation with Dr. Luna has been requested -pending consultation. -Continue pain control. 3. Hypertension. -Stable on lisinopril. 4. Obesity with BMI 36.1 -Stable lipid panel. Will add A1c. 5. Migraine headaches. -She is stable now. -Appreciate neurology recommendations. On Topamax and NSAIDs. DVT prophylaxis: SCDs . Not indicated Disposition: Continue current management. Await for orthopedic recommendations. Patient was seen in collaboration with Dr. Vega. Result Diagram: 11/18/18 0457 11/18/18 045 Exam/Review of Systems Exam Vitals Vital Signs Date Temp Pulse Resp B/P (MAP) Pulse Ox O2 O2 Flow FiO2 Time Delivery Rate 11/20/18 98.0 56 18 126/60 98 07:35 (82) 11/18/18 Room Air 15:54 Intake and Output 11/19/18 11/19/18 11/20/18 1515:00 23:00 07:00 IntakeIntake Total 960 ml 360 ml BalanceBalance 960 ml 360 ml Medications Medication Current Medications Nitroglycerin (Nitroglycerin (Sl Tab) 0.4 Mg) 1 tab Q5M UP TO 3 DOSES PRN SL .CHEST PAIN; Start 11/17/18 at 06:30 Lorazepam (Ativan) 0.5 mg Q8H PRN PO .ANXIETY; Start 11/17/18 at 14:30 Ondansetron HCl (Zofran Inj) 4 mg Q6H PRN IV NAUSEA/VOMITING; Start 11/17/18 at 14:30 Aspirin (Aspirin) 81 mg DAILY PO Last administered on 11/20/18 09:28; Admin Dose 81 MG; Start 11/18/18 at 09:00 Acetaminophen (Tylenol Tab) 650 mg Q6H PRN PO .PAIN 1-3 OR TEMP; Start 11/17/18 at 14:30 Morphine Sulfate (morphine) 2 mg Q4H PRN IV .PAIN 7-10; Start 11/17/18 at 14:30 Zolpidem Tartrate (Ambien) 5 mg QHS PRN PO .INSOMNIA; Start 11/17/18 at 14:30 Pantoprazole (Protonix Tab) 40 mg DAILY@06 PO Last administered on 11/19/18at 05:50; Admin Dose 40 MG; Start 11/17/18 at 14:30 Lisinopril (Zestril) 20 mg DAILY PO Last administered on 11/20/18at 09:28; Admin Dose 20 MG; Start 11/18/18 at 09:00 Docusate Sodium (Colace) 100 mg Q12H PO Last administered on 11/20/18 09:28; Admin Dose 100 MG; Start 11/18/18 at 09:00 Diclofenac Sodium (Voltaren 1% Gel) 4 gm QID TP Last administered on 11/20/18 09:30; Admin Dose 4 GM; Start 11/18/18 at 14:30 Topiramate (Topamax) 25 mg BID PO Last administered on 11/20/18 09:29; Admin Dose 25 MG; Start 11/18/18 at 21:00 Naproxen (Naprosyn) 500 mg Q8H PRN PO MILD PAIN LEVEL 1-3; Start 11/18/18 at 21:30 SHANIKA CONKLIN NP Nov 20, 2018 09:44
--- NOTE | 2018-11-20 11:39 | CONS ---
Assessment/Plan Assessment/Plan Hospital Course 58 yo F with hx of HTN and other comorbidities who presents for evaluation of chest pain. She was noted to have headaches... for which neurology is consulted. The clinical picture is consistent with migraines. 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 CTH is unrevealing. P: Cont Naproxen 500mg q8h prn for abortive management, w/ Topamax 25mg BID for ppx..to be titrated to goal as an outpatient.. Other medical management and supportive care per primary Will sign off for now; please call w/ adnl ?s Consultation Date/Type/Reason Admit Date/Time Nov 19, 2018 at 10:05 Type of Consult Neurology Reason for Consultation headache Requesting Provider: JULY MARY Date/Time of Note DATE: 11/20/18 TIME: 11:39 24 HR Interval Summary Free Text/Dictation Continues acute care. No c/o headaches, N/V/dizziness today. Exam Vital Signs Vitals Vital Signs Date Temp Pulse Resp B/P (MAP) Pulse Ox O2 O2 Flow FiO2 Time Delivery Rate 11/20/18 98.0 56 18 126/60 98 07:35 (82) 11/18/18 Room Air 15:54 Intake and Output 11/19/18 11/19/18 11/20/18 1515:00 23:00 07:00 IntakeIntake Total 960 ml 360 ml BalanceBalance 960 ml 360 ml Exam PE: Gen Appearance: No Apparent Distress HEENT: Normocephalic Cardiovascular: Regular rate Lungs: Clear bilaterally Abdomen: Soft Extremities: Dry NE: The patient was alert and oriented. Language was normal. Fund of knowledge was normal. Pupils were equal and reactive to light. There was no afferent pupillary defect. Visual munguia were normal. Funduscopic examination was limited. Extra-ocular movements were full. Ptosis was absent. There was no nystagmus. Facial sensation was normal. Face was symmetric with normal strength. Hearing was intact. Palate movements were normal. Neck strength was normal. There was normal tongue bulk and speed of movement. Tone was normal. Muscle bulk was normal. I did not see fasciculations. Arms and legs were strong. Vibration sensation was normal. Temperature and pinprick sensation was normal. Rapid alternating movements were normal. There was no dysmetria. There was no intention tremor. Gait was deferred due to bedrest. Arm and leg reflexes were 2+ and symmetric. Benítez's sign was absent. Plantar responses were flexor. WILLIAM BRONSON NP Nov 20, 2018 11:39 DAWN MATA Nov 20, 2018 20:16
--- NOTE | 2018-11-20 11:43 | PDOCDIS ---
Discharge Instructions CONDITION [id number] Patient Condition: [id number] Stable HOME CARE INSTRUCTIONS: [id number] Diet Instructions: [id number] Regular FOLLOW UP/APPOINTMENTS Follow-up Plan Follow-up with primary care physician, who can refer you to an orthopedic surgeon who you can follow-up in 2 weeks as outpatient for your left shoulder rotator cuff tear. SHANIKA CONKLIN NP Nov 20, 2018 11:43
[2018-11-20] MEDS ORDERED: TOPI25TA PO (11:50)
--- NOTE | 2018-11-20 11:54 | DS ---
Date/Time of Note Date/Time of Note DATE: 11/20/18 TIME: 11:50 Discharge Summary Admission/Discharge Info Admit Date/Time Nov 19, 2018 at 10:05 Discharge Date/Time Discharge Diagnosis 1. Chest pain, likely costochondritis. 2. Left shoulder rotator cuff tear- stable. outpt ortho f/u 3. Hypertension. 4. Obesity with BMI 36.1 5. Migraine headaches.stable Patient Condition: Stable Consults ,neuro ,ortho Procedures 11/19/2018 :LEFT shoulder MRI. IMPRESSION: 1. High-grade full width tear of the supraspinatus tendon at its insertion with full-thickness perforations through the tendon. There may be a few intact tendon fibers limiting tendon retraction. 2. High-grade partial thickness partial width tear of the leading edge insertion of the infraspinatus tendon where it overlaps the supraspinatus tendon without retraction. 3. Focal partial thickness partial width tear of the superior tendinous segment of the subscapularis myotendinous complex at the rotator interval measuring 0.4 cm. In this location, there is medial subluxation of the long biceps from the intertubercular groove. 4. Moderate tendinosis of the intra-articular segment of the long head of the biceps tendon. Biceps anchor is intact. 5. Degeneration of the superior glenoid labrum and degeneration of the articular cartilage of the superior glenoid rim with edema and cyst formation in the subchondral bone. 6. Sub acromial/subdeltoid bursa and moderate subcoracoid bursa containing debris and may be related to the rotator cuff tear and/or bursitis. 7. Moderate osteoarthritis of the acromioclavicular joint. 11/19/2018. CT brain. IMPRESSION: 1. Partially empty sella. 2. Minimal inspissated protein left anterior ethmoid air cell. 11/17/2018. Echocardiogram Findings: Left Ventricle: Normal left ventricular systolic function. Normal left ventricular cavity size. Normal left ventricular wall thickness. Ejection fraction is visually estimated at 65 %. Tissue Doppler/Mitral Doppler indices are within normal limits. Right Ventricle: Normal right ventricular size. Normal right ventricular systolic function. Left Atrium: The left atrium is normal in size. Right Atrium: The right atrium is normal in size. Mitral Valve: Normal appearance of the mitral valve. No mitral valve regurgitation is seen. Aortic Valve: Normal appearance of the aortic valve. No significant aortic stenosis or insufficiency. Tricuspid Valve: Normal appearance and function of the tricuspid valve with trace physiologic regurgitation. Normal right ventricular systolic pressure. Pulmonic Valve: Normal pulmonic valve appearance. Pericardium: Normal pericardium with no significant pericardial effusion. Aorta: Normal aortic root. IVC: Normal size and normal respiratory collapse consistent with normal right atrial pressure. Conclusions: Normal echocardiogram. 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 Patient is ruled out for acute coronary syndrome with serial troponin and EKG. Patient also had migraine headache for which she was seen by neurologist and was started on treatment. Her chest pain was most likely costochondritis, patient continued to have left shoulder pain as such an MRI was done which showed high- grade full width tear of supraspinatus tendon with perforations. Patient was continued on NSAIDs. She did not have any further shoulder pain. She was evaluated by orthopedic surgeon who recommended outpatient orthopedic follow-up in 2 weeks if her pain recurs or bothering her. Patient is very eager to be discharged home. She is not in any pain. She did not have any further headache or scalp Approximately 60 m spent in coordinating the discharge on this patient. Patient was seen in collaboration with Dr. Vega [facility], [place] Active Scripts Topiramate* (Topamax*) 25 Mg Tablet, 25 MG PO BID, #60 TAB Prov:SHANIKA CONKLIN V. [employer]LE[employer] CLERK 11/20/18 Reported Medications Ibuprofen* (Motrin*) 600 Mg Tab, 600 MG PO Q6H PRN for PAIN, TAB 11/17/18 Lisinopril* (Lisinopril*) 20 Mg Tablet, 20 MG PO DAILY, TAB 11/10/15 Discontinued Reported Medications Albuterol Sulfate* (Ventolin HFA*) 18 Gm Hfa.aer.ad, 2 PUFF INHALATION Q4H, INHALER 11/10/15 Discontinued Scripts Docusate Sodium* (Colace*) 100 Mg Capsule, 100 MG PO TID PRN for CONSTIPATION, #30 CAP Prov:KAYA DILL MD 11/26/17 Follow-up Plan Follow-up with primary care physician, who can refer you to an orthopedic surgeon who you can follow-up in 2 weeks as outpatient for your left shoulder rotator cuff tear. Your on medication to prevent migraine attacks and you need to have outpatient neurology follow-up for dosage adjustment of your medication Primary Care Provider MD KATERIN Bradley VIDYA V. [employer] CLERK Nov 20, 2018 11:54
[2018-11-20] MEDS ORDERED: WORK NOTE (13:25)
--- NOTE | 2018-11-20 13:54 | CONS ---
DATE OF ADMISSION: 11/19/2018 DATE OF CONSULTATION: 11/20/2018 TYPE OF CONSULTATION: Orthopedic Surgical HISTORY OF PRESENT ILLNESS: The patient is a 58-year-old right-handed female with a past history of hypertension who was admitted on 11/19/2018 when she came to the Emergency Room complaining of pain o yady her anterior chest with radiation to left shoulder which started about 2 days prior to her admiss ion, she was initially admitted to rule out acute coronary syndrome. However, subsequent diagnostic workup to rule out any cardiology problems and the orthopedic surgery was consulted for left shoulder pain. On inquiring, she has been having some pain and discomfort on and off for about 6 months. According to the patient, it started after heavy lifting with the trash bin. At the time of my examination on 11/20/2018, she claims that her pain involving her shoulder is almost gone, without too much problem. A range of motion of the left shoulder at this time was full without much pain. There was mild sub acromial tenderness. Impingement test was essentially negative at the time of my evaluation. Arm dr op test was also negative. The x-rays of the left shoulder was essentially within normal limits. The MRI scan of the left heavenlyul timothy is showing a full thickness tear involving the supraspinatus and a partial tear involving the inf raspinatus tendon. DIAGNOSTIC IMPRESSION: Shoulder impingement syndrome with the tear of the rotator cuff involving sup raspinatus portion, minimally asymptomatic at the time of my evaluation. RECOMMENDATIONS FOR TREATMENT: She has a case of minimal shoulder pain at this time, with the MRI do cumented a tear of the supraspinatus portion of the rotator cuff. She can be further followed by an orthopedic surgeon as an outpatient at this time, and if the pain persists, then possible surgical re pair can be considered. In the absence of any acute symptoms at this time, she is not a candidate fo r any acute surgical procedure. Dictated By: TOM VAZQUEZ MD IK/NTS Conf#: [id number] DID#: [id number] CC: JULY MARY MD;*EndCC*
== END 2018-11-20 13:45 | disposition home or self-care (01) | DRG 206 ==
LOC: E/R 06:00 → 6WM 08:56 → 2NE 11-18 22:00 → OBSVTOIN 11-19 10:05
PROVIDERS: ADMIT Family Medicine; ATTEND Family Medicine
DX: M94.0 Chondrocostal junction syndrome [Tietze] (principal); I10 Essential (primary) hypertension; E66.9 Obesity, unspecified; Z68.36 Body mass index [BMI] 36.0-36.9, adult; G43.909 Migraine, unspecified, not intractable, without status migrainosus; F41.9 Anxiety disorder, unspecified; M25.512 Pain in left shoulder; M75.42 Impingement syndrome of left shoulder
CPT/HCPCS: 36415; 70450; 71045; 73030; 73221; 80048; 80053; 80061; 80307; 81003; 82550; 82553; 83735; 84443; 84484; 85025; 93005; 93306; G0378